=== PATIENT | male | born 1975 | race African-American/Black ===

== ENCOUNTER 2018-04-24 11:41 | Emergency (ER) | payer MEDICARE, MEDICAID ==
[~2018-04-24] VITALS: Ht 185.4 cm; Wt 72.0 kg
[2018-04-24] MEDS ORDERED: NITROGLYCERIN 0.4MG TABLET SL SL PRN (22:45)
[2018-04-24] MEDS ORDERED: ASPIRIN 81MG TABLET PO ONE (22:45)
[2018-04-25 00:10] LABS: BASOPHILS % 0.6 % (0.0-2.0); EOSINOPHILS % 5.3 % (0.0-5.0); HEMATOCRIT. 35.2 % (42.0-52.0); HEMOGLOBIN. 11.4 g/dL (14.0-18.0); LYMPHOCYTES % 29.6 % (20.0-50.0); MEAN CORPUSCULAR HEMOGLOBIN 29.1 pg (28.0-32.0); MEAN CORPUSCULAR VOLUME 89.5 fL (80.0-94.0); MEAN PLATELET VOLUME 7.3 fl (7.4-10.4); MONOCYTES % 4.8 % (2.0-8.0); NEUTROPHILS % 59.7 % (40.0-76.0); PLATELET 461 x1000/uL (130-400); RED BLOOD CELL COUNT 3.93 mill/uL (4.7-6.1); RED CELL DISTRIBUTION WIDTH 17.2 % (11.6-14.6)
[2018-04-25 00:21] LABS: CHLORIDE 108 mEq/L (98-107)
[2018-04-25 00:23] LABS: D-DIMER 1.77 mg/L FEU (<0.50); PARTIAL THROMBOPLASTIN TIME 24.8 sec (23.4-31.0); PROTHROMBIN TIME 10.5 sec (9.1-11.1)
[2018-04-25 02:12] VITALS: BP 115/79
[2018-04-25] MEDS ORDERED: IOHEXOL-350 100 ML BOTTLE ONE (03:29)
[2018-04-25] MEDS ORDERED: TRAMADOL 50MG TABLET PO PRN (06:00)
[2018-04-25] MEDS ORDERED: GUAIFENESIN/CODEINE 200-20MG/10ML UDC PO PRN (06:00)
== END 2018-04-25 03:51 | disposition left against medical advice (07) ==
LOC: ER 13:24 → SUPCPDRO 04-25 06:09 → CANBEDREQ 04-25 07:51
DX: R07.89 Other chest pain (principal); F20.9 Schizophrenia, unspecified; Z91.013 Allergy to seafood
CPT/HCPCS: 36415; 71045; 71275; 80053; 83880; 84484; 85025; 85379; 85610; 85730; 93005; 99284; Q9967